=== PATIENT | male | born 1970 | race Two or more races ===

== ENCOUNTER 2024-08-20 02:44 | Emergency (ER) | payer MEDICARE, OTHER ==
[~2024-08-20] VITALS: Ht 175.3 cm; Wt 69.9 kg
[2024-08-20 04:43] LABS: BASOPHILS % (AUTO) 0.2 % (0.0-2.0); HEMATOCRIT 25 % (39-51); HEMOGLOBIN 8.7 g/dL (13.5-17.5); LYMPHOCYTES # (AUTO) 0.1 K/uL (0.8-4.8); LYMPHOCYTES % (AUTO) 3.1 % (20.0-44.0); MEAN CORPUSCULAR HEMOGLOBIN 31 PG (26.0-33.0); MEAN CORPUSCULAR HGB CONC 35 g/dl (31.0-36.0); MEAN CORPUSCULAR VOLUME 90 fL (80-96); MONOCYTES # (AUTO) 0.4 K/uL (0.1-1.30); MONOCYTES % (AUTO) 9.3 % (2.0-12.0); NEUTROPHILS # (AUTO) 3.8 K/uL (1.8-8.9); NEUTROPHILS % (AUTO) 86.4 % (43.0-81.0); PLATELET COUNT (AUTO) 237 K/uL (150-450); RED BLOOD CELL COUNT(AUTO) 2.77 MIL/uL (4.5-6.0); RED CELL DISTRIBUTION WIDTH 14.9 % (11.5-15.0); WHITE BLOOD COUNT (AUTO) 4.5 K/uL (4.3-11.0)
[2024-08-20 04:50] LABS: APPEARANCE,URINE CLEAR (CLEAR); BILIRUBIN,URINE NEGATIVE (NEGATIVE); BLOOD, URINE TRACE-INTA Ery/uL (NEGATIVE); COLOR,URINE YELLOW (YELLOW); KETONES,URINE TRACE mg/dL (NEGATIVE); LEUKOCYTE ESTERASE ,URINE NEGATIVE (NEGATIVE); NITRITE, URINE NEGATIVE (NEGATIVE); PH,URINE 7.5 (5.0-8.0); PROTEIN,URINE TRACE mg/dl (NEGATIVE); UGLUCOSE TRACE mg/dL (NEGATIVE); UROBILINOGEN,URINE 0.2 EU/dL (0.2)
[2024-08-20 04:53] LABS: CREATININE 2.1 mg/dL (0.6-1.3); POTASSIUM 3.1 mmol/L (3.5-5.1)
[2024-08-20] MEDS ORDERED: HYDROMORPHONE 1 MG/1 ML DISP.SYRIN ONE ×2 (04:57→06:08)
[2024-08-20] MEDS ORDERED: ONDANSETRON 4 MG TAB.RAPDIS ONE ×2 (04:57→06:08)
[2024-08-20 04:58] LABS: ALBUMIN 2.8 g/dL (3.4-5.0); BILIRUBIN,TOTAL 1.1 mg/dL (0.2-1.0); TOTAL PROTEIN, SERUM 6.4 g/dL (6.4-8.2)
[2024-08-20] MEDS: HYDROMORPHONE 1 MG/1 ML DISP.SYRIN IM ONE ×2 (05:01→06:12)
[2024-08-20] MEDS: ONDANSETRON 4 MG TAB.RAPDIS PO ONE ×2 (05:01→06:12)
[2024-08-20 05:14] LABS: ADD URINE CULTURE YES; BACTERIA,URINE Moderate /HPF (None Seen); COARSE GRANULAR CASTS,URINE Few /LPF (None Seen); SQUAMOUS EPITHELIAL CELL,UR Few /HPF (None Seen)
[2024-08-20] MEDS ORDERED: CEPH500C2 PO (06:43)
[2024-08-20] MEDS ORDERED: POTASSIUM CHLORIDE 20 MEQ TAB.PRT.SR PO ONE (06:50)
[2024-08-20] MEDS: POTASSIUM CHLORIDE 20 MEQ TAB.PRT.SR PO ONE (06:53)
[2024-08-20 07:57] VITALS: BP 139/92; TEMP 98.7; O2SAT 98
== END 2024-08-20 07:58 | disposition home or self-care (01) ==
LOC: ER 02:46
DX: N39.0 Urinary tract infection, site not specified (principal); D64.9 Anemia, unspecified; Z51.0 Encounter for antineoplastic radiation therapy; Z92.3 Personal history of irradiation; Z93.0 Tracheostomy status
CPT/HCPCS: 99284; 71045; 96372 ×2; 70360; 85025; 87086; 81001; 36415; 80053; A4217; Q0162 ×2; J1171 ×2

== ENCOUNTER 2024-09-12 00:51 | Emergency (ER) | payer MEDICARE ==
[~2024-09-12] VITALS: Ht 170.2 cm; Wt 70.3 kg
[~2024-09-12 00:51] MED LIST: CEPH500C2 PO
[2024-09-12] MEDS ORDERED: KETOROLAC TROMETHAMINE INJ 30 MG/ML VIAL ONE (01:38)
[2024-09-12] MEDS: KETOROLAC TROMETHAMINE INJ 30 MG/ML VIAL IM ONE (01:40)
[2024-09-12 01:44] VITALS: BP 130/77; TEMP 98.4; O2SAT 99
== END 2024-09-12 01:44 | disposition home or self-care (01) ==
LOC: ER 00:59
DX: J95.00 Unspecified tracheostomy complication (principal); Z60.2 Problems related to living alone
CPT/HCPCS: 99283; 96372; J1885; A4623

== ENCOUNTER 2025-03-07 09:45 | Emergency (ER) | payer MEDICARE, OTHER ==
[~2025-03-07] VITALS: Ht 170.2 cm; Wt 69.4 kg
[2025-03-07 09:45] VITALS: TEMP 98.6
[2025-03-07] MEDS ORDERED: AZITHROMYCIN 500 MG in IV D5W 250 ML IV ONE (10:30)
[2025-03-07] MEDS ORDERED: CEFTRIAXONE 1GM BAG (ER ONLY) 50 ML IV ONE (11:51)
[2025-03-07] MEDS: IV NS 0.9% 1,000 ML BAG IV ONE (11:55)
[2025-03-07] MEDS: CEFTRIAXONE 1GM BAG (ER ONLY) 50 ML IV ONE (11:56)
[2025-03-07 12:07] LABS: PLATELET COUNT (AUTO) 460 K/uL (150-450); RED BLOOD CELL COUNT(AUTO) 3.65 MIL/uL (4.5-6.0); RED CELL DISTRIBUTION WIDTH 14.3 % (11.5-15.0); WHITE BLOOD COUNT (AUTO) 7.7 K/uL (4.3-11.0)
[2025-03-07 12:10] LABS: APPEARANCE,URINE CLEAR (CLEAR); BLOOD, URINE NEGATIVE Ery/uL (NEGATIVE); LEUKOCYTE ESTERASE ,URINE NEGATIVE (NEGATIVE); NITRITE, URINE NEGATIVE (NEGATIVE); UGLUCOSE NEGATIVE (NEGATIVE)
[2025-03-07] MEDS ORDERED: Lithium PO (12:10)
[2025-03-07 12:12] LABS: CALCIUM, SERUM 8.9 mg/dL (8.5-10.1); CREATININE 1.3 mg/dL (0.6-1.3); SODIUM SERUM 138 mmol/L (136-145); UREA NITROGEN, BLOOD 16 mg/dL (7-18)
[2025-03-07 12:17] LABS: INR 1.03 (0.91-1.10)
[2025-03-07 12:19] LABS: ASPARTATE AMINOTRANSFERASE 40.0 U/L (15-37); TOTAL PROTEIN, SERUM 6.5 g/dL (6.4-8.2)
[2025-03-07 12:22] LABS: LACTIC ACID 1.7 mmol/L (0.4-2.0)
[2025-03-07] MEDS ORDERED: MORPHINE SULFATE INJ 4 MG/ML DISP.SYRIN ONE (12:49)
[2025-03-07] MEDS: MORPHINE SULFATE INJ 2 MG/ML DISP.SYRIN IV ONE (12:53)
[2025-03-07] MEDS: DOXYCYCLINE 100 MG in IV D5W 100 ML IV ONE (13:19)
[2025-03-07] MEDS ORDERED: MAG HYDROX/AL HYDROX/SIMETH 30 ML UDC PO PRN (13:30)
[2025-03-07] MEDS ORDERED: IV NS 0.9% 1,000 ML IV PRN (13:30)
[2025-03-07] MEDS ORDERED: Z GUARD REMEDY 4 OZ OINT TP PRN (13:30)
[2025-03-07] MEDS ORDERED: MAGNESIUM HYDROXIDE 30 ML UDC PO PRN (13:30)
[2025-03-07] MEDS ORDERED: ONDANSETRON HCL/PF 4 MG/2 ML VIAL IVP PRN (13:30)
[2025-03-07] MEDS ORDERED: ZOLPIDEM TARTRATE 5 MG TABLET PO PRN (13:30)
[2025-03-07] MEDS ORDERED: ACETAMINOPHEN 325 MG TABLET PO PRN (13:30)
[2025-03-07] MEDS ORDERED: ENOXAPARIN SODIUM 40 MG/0.4 ML DISP.SYRIN SQ SCH (13:30)
[2025-03-07 14:55] VITALS: BP 120/77; O2SAT 97
[2025-03-07] MEDS ORDERED: DOXYCYCLINE 100 MG in IV D5W 100 ML IV SCH (21:00)
== END 2025-03-07 14:00 | disposition left against medical advice (07) ==
LOC: ER 10:01
DX: J95.00 Unspecified tracheostomy complication (principal); G89.29 Other chronic pain; Z92.3 Personal history of irradiation; Z92.21 Personal history of antineoplastic chemotherapy; Z87.01 Personal history of pneumonia (recurrent); Z53.29 Procedure and treatment not carried out because of patient's decision for other reasons; Z60.2 Problems related to living alone; Z20.822 Contact with and (suspected) exposure to COVID-19
CPT/HCPCS: 99285; 96365; 71045; 96367; 96361; 96375; 87426; 87804 ×2; 84145; 85025; 80048; 87040 ×2; 87086; 83605; 80076; 81003; 36415; 84484; 85730; 94799; 31720; 93005; J3490; J2270; J7060; J7030; J0696

== ENCOUNTER 2025-03-19 16:53 | Emergency (ER) | payer MEDICARE, OTHER ==
[~2025-03-19] VITALS: Ht 170.2 cm; Wt 68.0 kg
[~2025-03-19 16:53] MED LIST changes: -CEPH500C2 PO; +Lithium PO
[2025-03-19 17:00] VITALS: BP 90/50; TEMP 98.2
[2025-03-19] MEDS ORDERED: IBUPROFEN 400 MG TABLET ONE (17:42)
[2025-03-19] MEDS: IBUPROFEN 400 MG TABLET PO ONE (17:52)
[2025-03-19 18:01] VITALS: O2SAT 97
== END 2025-03-19 18:02 | disposition home or self-care (01) ==
LOC: ER 16:57
DX: J95.03 Malfunction of tracheostomy stoma (principal); Z90.02 Acquired absence of larynx; Z60.2 Problems related to living alone